=== PATIENT | male | born 1960 | race Caucasian/White ===

== ENCOUNTER 2022-04-05 18:07 | Emergency (ER) | payer OTHER ==
[~2022-04-05] VITALS: Ht 190 cm; Wt 86.0 kg
--- NOTE | 2022-04-05 18:25 | ED EENT ---
History of Present Illness General Stated Complaint: NOSE BLEED History of Present Illness Date Seen by Provider: Apr 05, 2022 Time Seen by Provider: 18:23 Initial Comments 62-year-old male presents with a nosebleed. He reports is been gone for about 20 minutes has had difficulty getting it stopped. He is on an aspirin a day but no other blood thinners. Reports that he had a nosebleed about a week ago also. Reports his nose been really dry and he just was putting some Vaseline up in the nare and then developed bleeding. Patient with no other complaints. Allergies and Home Medications Allergies Coded Allergies: morphine (Verified Allergy, Unknown, 04/05/22) Patient Home Medication List Home Medication List Reviewed: Yes Review of Systems Review of Systems Constitutional: no symptoms reported Eyes: No Symptoms Reported Ears: No Symptoms Reported Nose: epistaxis Mouth: no symptoms reported Throat: no symptoms reported Respiratory: no symptoms reported Cardiovascular: no symptoms reported Gastrointestinal: no symptoms reported Musculoskeletal: no symptoms reported Skin: no symptoms reported Neurological: No Symptoms Reported Physical Exam Vital Signs Vital Signs - First Documented 04/05/22 18:27 Temp 35.7 Pulse 88 Resp 18 B/P (MAP) 143/85 (104) Pulse Ox 98 O2 Delivery Room Air Height, Weight, BMI Height: '" Weight: lbs. oz. kg; BMI Method: General Appearance: WD/WN, no apparent distress Eyes: bilateral eye normal inspection Nose: active bleeding (mild, right nare ) Neck: full range of motion, supple Cardiovascular: normal peripheral pulses, regular rate, rhythm Respiratory: lungs clear, normal breath sounds Gastrointestinal: non tender, soft Neurologic/Psychiatric: no motor/sensory deficits, alert, normal mood/affect Skin: normal color, warm/dry Progress/Results/Core Measures Results/Orders My Orders Orders - LAUREN,LYLE L DO Oxymetazoline 0.05% Nasal Kramer (Afrin 0. (04/05/22 21:00) Oxymetazoline 0.05% Nasal Kramer (Afrin 0. (04/05/22 18:41) Vital Signs/I&O 04/05/22 18:27 Temp 35.7 Pulse 88 Resp 18 B/P (MAP) 143/85 (104) Pulse Ox 98 O2 Delivery Room Air Progress Progress Note : Progress Note Patient's epistasis stopped and was monitored for approximately 15-20 minutes with no further bleeding following Afrin and pressure. I discussed outpatient supportive care and what to do if it would rebleed. Patient should follow-up with his primary care provider if he continues to get recurrent nosebleeds. He is stable and discharged Departure Impression Primary Impression: Epistaxis Disposition: 01 HOME, SELF-CARE Condition: Stable Departure-Patient Inst. Referrals: NO,LOCAL PHYSICIAN (PCP/Family) Primary Care Physician Patient Instructions: Nosebleeds ED Add. Discharge Instructions: Please sneeze with mouth open, do not blow your nose for the next 48 hours. You may use Afrin twice daily as needed. Follow-up with your primary care provider if you continue to get recurrent nosebleeds for possible consultation with an ear nose throat specialist LYLE LAUREN DO Apr 05, 2022 18:25
[2022-04-05] MEDS ORDERED: OXYMETAZOLINE (AFRIN) 0.05% NA 30 ML BTL ONE (18:41)
[2022-04-05 19:35] VITALS: BP 116/79
[2022-04-05] MEDS ORDERED: OXYMETAZOLINE (AFRIN) 0.05% NA 30 ML BTL SCH (21:00)
== END 2022-04-05 19:35 | disposition home or self-care (01) ==
LOC: ER FS 18:09
DX: R04.0 Epistaxis (principal); Z28.310 Unvaccinated for COVID-19; Z79.82 Long term (current) use of aspirin
CPT/HCPCS: 99284